=== PATIENT | male | born 1955 | race Two or more races ===

== ENCOUNTER 2020-10-13 11:00 | Inpatient (IN) | payer MEDICARE, OTHER ==
[~2020-10-13] VITALS: Ht 182.9 cm; Wt 116.7 kg
[2020-10-13] MEDS ORDERED: ONDANSETRON HCL 4 MG/2 ML VIAL IV ONE (11:15)
[2020-10-13] MEDS ORDERED: MORPHINE SULFATE 4 MG/ML SYR/VIAL IV ONE (11:15)
[2020-10-13] MEDS ORDERED: dilTIAZem 25 MG/5 ML VIAL IV ONE (11:30)
[2020-10-13 11:31] LABS: Basophils # (auto) 0.1 10 ^3/uL (0-0.2); Basophils % (auto) 0.9 % (0.0-2.0); Eosinophils # (auto) 0 10 ^3/uL (0-0.8); Eosinophils % (auto) 0.2 % (0.0-7.0); Hematocrit 49.2 % (41.0-53.0); Hemoglobin 16.6 g/dL (13.5-17.5); Lymphocytes # (auto) 0.7 10 ^3/uL (0.4-5.4); Lymphocytes % (auto) 9.5 % (10.0-50.0); Mean Corpuscular Hemoglobin 32.2 pg (28.0-32.0); Mean Corpuscular Hgb Conc. 33.7 g/dL (32.0-36.0); Mean Corpuscular Volume 95.5 fL (80.0-100.0); Monocytes # (auto) 0.8 10 ^3/uL (0-1.3); Monocytes % (auto) 10.2 % (0.0-12.0); Neutrophils # (auto) 5.9 10 ^3/uL (1.6-8.6); Neutrophils % (auto) 79.2 % (37.0-80.0); Nucleated Red Blood Cells % 0.1 %; Red Blood Cells 5.15 10^6/uL (4.5-5.90); Red Cell Distribution Width 16.8 % (11.8-14.3); White Blood Cell 7.5 10^3/uL (4.4-10.8)
[2020-10-13 12:07] LABS: Albumin 3.2 g/dL (3.4-5.0); Calcium 8.4 mg/dL (8.5-10.1); Magnesium 2.3 mg/dL (1.6-2.6); Potassium 4.3 mmol/L (3.5-5.1)
[2020-10-13 12:26] LABS: BUN/Creatinine Ratio 13.9; Bilirubin, Total 2.7 mg/dL (0.2-1.0); CRP High Sensitivity 9.12 mg/dL (< 0.3); Total Protein 7.7 g/dL (6.4-8.2)
[2020-10-13] MEDS ORDERED: ONDANSETRON HCL 4 MG/2 ML VIAL IV PRN (13:15)
[2020-10-13] MEDS ORDERED: ACETAMINOPHEN 500 MG TAB PO PRN (13:15)
[2020-10-13] MEDS ORDERED: MORPHINE SULFATE INJECTION 2 MG/ML SYRG IV PRN ×2 (13:15)
[2020-10-13] MEDS ORDERED: NITROGLYCERIN 0.4 MG SL TAB SL PRN (13:15)
[2020-10-13] MEDS ORDERED: HYDROcodone-ACET 5/325MG TAB PO PRN (13:15)
[2020-10-13] MEDS ORDERED: FUROSEMIDE 20 MG/2 ML VIAL IV ONE (13:15)
[2020-10-13] MEDS ORDERED: hydrALAZINE HCL 20 MG/ML VL IV PRN (13:15)
[2020-10-13] MEDS: dilTIAZem 125mg/125ml BAG KIT 125 ML IV SCH (13:36)
[2020-10-13] MEDS: METOPROLOL TARTRATE 50 MG TAB PO SCH ×2 (13:37→22:22)
[2020-10-13] MEDS: LORazepam 0.5 MG TAB PO PRN (13:38)
[2020-10-13 16:31] LABS: INR 1.34 (0.9-1.15); Partial Thromboplastin Time 28.8 sec (23.0-31.2)
[2020-10-13] MEDS: FUROSEMIDE 20 MG/2 ML VIAL IV SCH (18:00)
[2020-10-13] MEDS: ATORVASTATIN 20 MG TAB PO SCH (22:23)
[2020-10-13] MEDS: SACUBITRIL-VALSARTAN 24mg/26mg TAB PO SCH (22:23)
[2020-10-14] MEDS: dilTIAZem 125mg/125ml BAG KIT 125 ML IV SCH (00:27)
[2020-10-14 01:12] LABS: Amphetamine Screen, Urine NEGATIVE (NEGATIVE); Barbiturate Scree,Urine NEGATIVE (NEGATIVE); Benzodiazephine Screen, Urine NEGATIVE (NEGATIVE); Cannabinoid Screen, Urine NEGATIVE (NEGATIVE); Cocaine Screen, Urine NEGATIVE (NEGATIVE); Opiate Scree,Urine POSITIVE (NEGATIVE); Phencyclidine Screen, Urine NEGATIVE (NEGATIVE)
[2020-10-14 01:19] LABS: Urine Bacteria FEW /hpf (None Seen); Urine Blood Negative /uL (Negative); Urine Hyaline Cast MANY /lpf (0 - 2); Urine Mucus FEW (None Seen); Urine Specific Gravity 1.017 (1.001-1.035); Urine WBC 1 /hpf (0 - 3)
[2020-10-14] MEDS: LORazepam 0.5 MG TAB PO PRN (02:44)
[2020-10-14] MEDS: FUROSEMIDE 20 MG/2 ML VIAL IV SCH ×2 (06:46→18:00)
[2020-10-14 07:17] LABS: Basophils # (auto) 0 10 ^3/uL (0-0.2); Basophils % (auto) 0.3 % (0.0-2.0); Eosinophils # (auto) 0 10 ^3/uL (0-0.8); Hematocrit 49.2 % (41.0-53.0); Hemoglobin 16.3 g/dL (13.5-17.5); Lymphocytes # (auto) 0.7 10 ^3/uL (0.4-5.4); Lymphocytes % (auto) 6.5 % (10.0-50.0); Mean Corpuscular Hemoglobin 32.5 pg (28.0-32.0); Mean Corpuscular Hgb Conc. 33.2 g/dL (32.0-36.0); Mean Corpuscular Volume 97.9 fL (80.0-100.0); Monocytes % (auto) 10.1 % (0.0-12.0); Neutrophils # (auto) 8.4 10 ^3/uL (1.6-8.6); Neutrophils % (auto) 83.1 % (37.0-80.0); Nucleated Red Blood Cells % 0.3 %; Red Blood Cells 5.02 10^6/uL (4.5-5.90); Red Cell Distribution Width 16.8 % (11.8-14.3); White Blood Cell 10.1 10^3/uL (4.4-10.8)
[2020-10-14 07:40] LABS: Calcium 8.3 mg/dL (8.5-10.1)
[2020-10-14 07:42] LABS: Potassium 6.4 mmol/L (3.5-5.1)
[2020-10-14 07:52] LABS: Cholesterol 135 mg/dL (< 200); HDL Cholesterol 23 mg/dL (40-59); LDL Cholesterol 118 mg/dL (< 100); Triglycerides 84 mg/dL (< 150)
[2020-10-14] MEDS: ASPirin-EC 81 mg tab PO SCH (10:00)
[2020-10-14] MEDS: THIAMINE HCL 100 MG TAB PO SCH (10:00)
[2020-10-14] MEDS: FOLIC ACID 1 MG TAB PO SCH (10:00)
[2020-10-14] MEDS: SACUBITRIL-VALSARTAN 24mg/26mg TAB PO SCH (10:00)
[2020-10-14] MEDS: METOPROLOL TARTRATE 50 MG TAB PO SCH (10:00)
[2020-10-14] MEDS ORDERED: LISINOPRIL 10 MG TAB PO SCH (10:00)
[2020-10-14] MEDS ORDERED: FUROSEMIDE 20 MG/2 ML VIAL IV SCH (10:00)
[2020-10-14] MEDS: MULTIPLE VITAMIN TAB PO SCH (10:00)
[2020-10-14] MEDS: FAMOTIDINE 20 MG TAB PO SCH (10:00)
[2020-10-14] MEDS ORDERED: traMADol HCL 50 MG TAB PO ONE (11:30)
[2020-10-14] MEDS ORDERED: SODIUM ZIRCONIUM CYCL 10 GM PAK PO ONE (11:45)
[2020-10-14] MEDS ORDERED: DEXTROSE (50%) 50ML SYRG IV ONE (12:15)
[2020-10-14] MEDS ORDERED: SODIUM BICARBONATE 8.4% INJ 50ML SYRINGE IV ONE (12:15)
[2020-10-14] MEDS ORDERED: CALCIUM GLUC 4.65meq/50ml D5AE 50 ML IV ONE (12:15)
[2020-10-14] MEDS ORDERED: InsuLIN REG 1unit/0.01ml Soln (100units/ml) IV ONE (12:15)
[2020-10-14] MEDS: SODIUM ZIRCONIUM CYCL 10 GM PAK PO SCH (14:00)
[2020-10-14 15:51] VITALS: BP 99/60
[2020-10-14 16:45] VITALS: BP 108/52
[2020-10-14 20:00] VITALS: BP 135/72
[2020-10-14 22:00] VITALS: BP 94/135
[2020-10-14] MEDS ORDERED: SODIUM BICARBONATE 8.4 % INJ 50ML VIAL IV ONE ×2 (22:15→22:30)
[2020-10-14] MEDS ORDERED: SODIUM BICARBONATE 50ML VIAL 150 ML in D5W 5% 1,000 ML IV SCH (22:15)
[2020-10-14] MEDS ORDERED: FUROSEMIDE 40 MG/4 ML VIAL IV ONE (22:30)
[2020-10-14] MEDS ORDERED: ALBUMIN 5% 250 ML IV ONE (22:45)
[2020-10-14] MEDS: METOPROLOL TARTRATE 25 MG TAB PO SCH (23:02)
[2020-10-14] MEDS: ATORVASTATIN 20 MG TAB PO SCH (23:25)
[2020-10-15] MEDS: SODIUM ZIRCONIUM CYCL 10 GM PAK PO SCH ×2 (00:25→06:15)
[2020-10-15 00:31] VITALS: BP 115/76
[2020-10-15] MEDS: LORazepam 0.5 MG TAB PO PRN (03:08)
[2020-10-15 05:00] VITALS: BP 93/46
[2020-10-15] MEDS: FUROSEMIDE 20 MG/2 ML VIAL IV SCH (06:00)
[2020-10-15 07:22] LABS: Basophils # (auto) 0 10 ^3/uL (0-0.2); Basophils % (auto) 0.4 % (0.0-2.0); Eosinophils # (auto) 0 10 ^3/uL (0-0.8); Eosinophils % (auto) 0.4 % (0.0-7.0); Hematocrit 45.2 % (41.0-53.0); Hemoglobin 15.3 g/dL (13.5-17.5); Lymphocytes % (auto) 10.3 % (10.0-50.0); Mean Corpuscular Hgb Conc. 33.8 g/dL (32.0-36.0); Mean Corpuscular Volume 94.7 fL (80.0-100.0); Monocytes # (auto) 0.7 10 ^3/uL (0-1.3); Monocytes % (auto) 7.3 % (0.0-12.0); Neutrophils # (auto) 7.6 10 ^3/uL (1.6-8.6); Neutrophils % (auto) 81.6 % (37.0-80.0); Nucleated Red Blood Cells % 0.2 %; Red Blood Cells 4.77 10^6/uL (4.5-5.90); Red Cell Distribution Width 16.7 % (11.8-14.3); White Blood Cell 9.3 10^3/uL (4.4-10.8)
[2020-10-15 07:39] LABS: Potassium 3.9 mmol/L (3.5-5.1)
[2020-10-15 07:52] LABS: Albumin 2.7 g/dL (3.4-5.0); BUN/Creatinine Ratio 22.1; Calcium 7.8 mg/dL (8.5-10.1); Total Protein 6.2 g/dL (6.4-8.2)
[2020-10-15 09:00] VITALS: BP 120/71
[2020-10-15] MEDS: METOPROLOL TARTRATE 25 MG TAB PO SCH (09:59)
[2020-10-15] MEDS: FOLIC ACID 1 MG TAB PO SCH (10:00)
[2020-10-15] MEDS: MULTIPLE VITAMIN TAB PO SCH (10:00)
[2020-10-15] MEDS: THIAMINE HCL 100 MG TAB PO SCH (10:00)
[2020-10-15] MEDS: FAMOTIDINE 20 MG TAB PO SCH (10:00)
[2020-10-15] MEDS: ASPirin-EC 81 mg tab PO SCH (10:05)
[2020-10-15] MEDS ORDERED: FOLIC ACID 1 MG, MULTIPLE VITAMIN 10 ML, MAGNESIUM SULF SDV 50% 8 MEQ, THIAMINE INJ 100... INJ SCH ×5 (12:00)
[2020-10-15] MEDS ORDERED: chlordiazePOXIDE HCL 25 MG CAP PO SCH (14:00)
== END 2020-10-15 12:45 | disposition left against medical advice (07) | DRG 308 ==
LOC: ER 11:00 → TELE 11:01 → TELE-CENTR 10-14 15:26 → CENTRAL 10-14 16:15 → TELE-CENTR 10-14 20:36
PROVIDERS: ADMIT Nurse Practitioner Acute Care; ATTEND Family Medicine
PROC: 0W993ZZ Drainage of Right Pleural Cavity, Percutaneous Approach (ICD-10-PCS; principal; 2020-10-14)
DX: I48.91 Unspecified atrial fibrillation (principal); I50.23 Acute on chronic systolic (congestive) heart failure; N17.9 Acute kidney failure, unspecified; J91.8 Pleural effusion in other conditions classified elsewhere; I42.7 Cardiomyopathy due to drug and external agent; Z20.822 Contact with and (suspected) exposure to COVID-19; F10.20 Alcohol dependence, uncomplicated; K42.9 Umbilical hernia without obstruction or gangrene; I25.5 Ischemic cardiomyopathy; E78.5 Hyperlipidemia, unspecified; F17.210 Nicotine dependence, cigarettes, uncomplicated; F12.90 Cannabis use, unspecified, uncomplicated; Z53.29 Procedure and treatment not carried out because of patient's decision for other reasons; E66.01 Morbid (severe) obesity due to excess calories; E87.5 Hyperkalemia; F15.10 Other stimulant abuse, uncomplicated; Z85.46 Personal history of malignant neoplasm of prostate; Z90.79 Acquired absence of other genital organ(s); Z82.49 Family history of ischemic heart disease and other diseases of the circulatory system; Z71.51 Drug abuse counseling and surveillance of drug abuser; Z68.34 Body mass index [BMI] 34.0-34.9, adult
CPT/HCPCS: 10022; 36415; 71045; 74176; 76604; 76942; 80048; 80053; 80061; 80307; 81001; 82728; 82962; 83690; 83735; 83880; 84484; 85025; 85610; 85730; 86141; 87205; 87426; 93005; 93306; 96365; 96366; 96375; 99291; G0378; J0610; J1815; J2405